=== PATIENT | female | born 1990 ===

== ENCOUNTER 2020-06-25 03:35 | Emergency (ER) | payer MEDICAID ==
[~2020-06-25] VITALS: Ht 157.5 cm; Wt 49.0 kg
[2020-06-25 03:40] VITALS: Ht 157.5 cm; Wt 49.0 kg
[2020-06-25 04:42] LABS: BASOPHIL % 1.1 % (0.2-1.3); PLATELET COUNT 243 x10^3mcL (179-408); RED CELL DISTRIBUTION WIDTH 14.3 % (12.3-17.7)
[2020-06-25 06:25] VITALS: BP 92/59
== END 2020-06-25 06:25 | disposition home or self-care (01) ==
LOC: ED 03:35
PROVIDERS: Emergency Medicine
DX: O72.1 Other immediate postpartum hemorrhage (principal); F17.210 Nicotine dependence, cigarettes, uncomplicated